=== PATIENT | female | born 1980 | race Caucasian/White ===

== ENCOUNTER 2018-03-21 21:50 | Emergency (ER) | payer OTHER, SELFPAY ==
[2018-03-21 21:51] VITALS: BP 149/99; PULSE 85; RESP 18; TEMP 36.5; O2SAT 100; BMI 20.5
--- NOTE | 2018-03-21 23:02 | ED.DCSUM_ITS ---
- ER Visit Summary Date of Service: 03/21/18 Chief Complaint: [] Abdominal pain History of Present Illness: The patient is a 37 F planing of abdominal pain since today at 1 AM. She woke up with pain in her epigastric region. It feels like contraction type discomfort. It hurts to touch. Foods make it worse. She was seen in [place] as they have a vacation home there at a.m. today. She had lab work and ultrasound and told they were normal. Given a prescription for Nexium. They did give her pain medicines which helped her sleep for couple hours and then her pain came back. It comes in waves. No nausea or vomiting. She had one loose bowel movement this afternoon. Once she has had this 1 time 8 years ago and it resolved on its own Physical Examination: [] Vital signs reviewed General: Well-nourished well-developed Head: Normocephalic atraumatic Eyes: Pupils equal round and reactive to light extraocular movements intact ENT: TMs clear no hemotympanum no trauma Neck: Nontender full range of motion Cardiovascular: Regular rate rhythm no murmurs normal S1-S2 Respiratory: No distress clear to auscultation bilaterally chest nontender Abdomen: Soft tender epigastric. Nondistended normal bowel sounds no masses Back: Nontender no CVA tenderness Extremities: Nontender active range of motion ?4 extremities no trauma Skin: Normal color no trauma Neuro alert oriented cranial nerves II through XII intact normal strength sensation reflexes Test Results: [] Emergency Department Course and Treatment: [] Patient given IV fluids, Zofran, morphine. The second dose of morphine her symptoms have resolved. Lab work shows her CBC is normal. Chemistries normal except chloride 110 calcium 8.1. Liver function tests normal except alk phos 159, ALT 138, AST 334. Bilirubin normal. Lipase 128 normal. T[address] negative. negative. CT abdomen pelvis negative. At this time I discussed the patient her drinking habits. She does say she is a binge drinker. She has been drinking daily for the last few days. She drinks shots. I think she has alcohol induced hepatitis. She will follow-up with GI as well as her family doctor retained from alcohol. She will be given oxycodone and Zofran for home to help her through this. Should resolve with refraining from alcohol. She will return if it worsens despite treatment. She had a negative ultrasound this morning of her gallbladder. Treatment Plan: [] Disposition: [] Impression: [] Acute hepatitis, suspected alcohol induced This note was generated with [employer] dictation software. It may contain incorrect words, spelling, and punctuation that were not noted in review of the chart prior to signing ED Disposition - Plan for ED Patient: Chief Complaint: Abd Pain Referrals: Westley Damian DO [Primary Care Provider] -
[2018-03-21] MEDS: 0.9% Normal Saline 1,000 ML 125 ML IV (23:21)
[2018-03-21] MEDS: Ondansetron 4 MG/2 ML Vial IV (23:26)
[2018-03-21] MEDS: Morphine 4 MG/ML Syringe IV (23:27)
[2018-03-21 23:35] LABS: Absolute Lymphocyte Count 1.62 X10^3/ul (0.83-4.51); Absolute Neutrophil Count 5.7 X10^3/uL (2.0-7.7); Basophil# 0.03 X10^3/uL; Basophil% 0.3 % (0-1); Hematocrit 40.2 % (37-47); Hemoglobin 13.6 g/dl (12.0-15.0); Lymphocyte # 1.62 X10^3/ul (4.0); Lymphocyte % 18.5 % (19-41); Mean Corp Hgb Conc 33.8 g/gl (32-36); Mean Corpuscular Hgb 30.7 pg (27.0-32.0); Mean Corpuscular Volume 90.7 fL (81-99); Mean Platelet Vol. 10.7 fl (6.2-12.0); Monocyte# 0.71 X10^3/uL; Monocyte% 8.1 % (0-10); Neutrophil # 5.69 X10^3/uL (2.7-7.7); Platelet Count 219 K/mm3 (150-450); RBC Distribution Width CV 12.2 % (11.6-14.6); RBC Distribution Width SD 40.4 fl (35.1-43.9); Red Blood Count 4.43 M/mm3 (4.2-5.4); White Blood Count 8.8 K/mm3 (4.4-11.0)
[2018-03-21 23:38] LABS: POSITIVE COUNT NO; POSITIVE DIFFERENTIAL NO; POSITIVE MORPHOLOGY NO
[2018-03-22 00:02] LABS: ALB/GLOB Ratio 0.9 RATIO (0.9-2.4); AST(SGOT) 334 U/L (15-37); Alanine Aminotransfer ALT/SGPT 138 U/L (13-56); Albumin, Serum 3.1 g/dL (3.2-5.0); Alkaline Phosphatase 159 U/L (45-117); Anion Gap 5 (5-15); BUN 7 mg/dL (7-18); BUN/Creat Ratio 10.8 RATIO (10-20); Calcium,Total 8.1 mg/dL (8.5-10.1); Chloride 110 mmol/L (98-107); Creatinine, Serum 0.65 mg/dL (0.55-1.02); EST Glomerular Filtration Rate 108 mL/min (>60); Est Glom Filt Rate - Afr Amer 131 mL/min (>60); Estimated Creatinine Clearance 100.84 ml/min; Globulin 3.6 g/dL (2.2-4.2); Glucose 109 mg/dL (74-106); Lipase 128 U/L (73-393); Potassium 3.6 mmol/L (3.5-5.1); Protein, Total 6.7 g/dL (6.4-8.2); Sodium Level 140 mmol/L (136-145)
[2018-03-22 00:20] LABS: Pregnancy, Serum, hCG Quali. NEGATIVE Negative (0-9 Nonpreg)
--- NOTE | 2018-03-22 00:21 | CT_ITS ---
STUDY: CT ABDOMEN AND PELVIS WITHOUT CONTRAST REASON FOR EXAM: Female, 37 years old. Right upper quadrant abdominal pain. Patient has history of hepatitis. RADIATION DOSAGE (If Supplied By Facility): CTDIvol = ( 6.06 ) mGy, DLP = ( 283.13 ) mGycm TECHNIQUE: Transaxial images were obtained from the dome of the diaphragm to the symphysis pubis without oral contrast, and without intravenous contrast. Sagittal and coronal images were reconstructed. Individualized dose optimization techniques were used for this CT. COMPARISON: Prior comparison studies are not available for review at this time. FINDINGS: The visualized lung bases are unremarkable. The visualized portions of the heart are within normal limits. Normal liver. Normal gallbladder and extrahepatic biliary system. Normal spleen. Normal pancreas. Normal bilateral adrenal glands. Normal right kidney. Normal left kidney. Normal visualized stomach. There is no evidence for dilated bowel, ascites or pneumoperitoneum. The small bowel has a grossly normal unenhanced appearance. Normal colon. The appendix is visualized and appears normal. Normal abdominal aorta. Normal inferior vena cava. There is borderline retroperitoneal lymphadenopathy with enlarged nodes no greater than 10mm in the short axis diameter. Normal urinary bladder. Normal visualized uterus. Normal abdominal wall. There appears to be an umbilical piercing which obscures some anatomy secondary to beam hardening and streak artifact. Normal osseous structures. CT/Abdomen/Pelvis without Cont IMPRESSION: No CT evidence of acute intra-abdominal disease. Electronically Signed: Leatha Castro MD at 1:03 EDT , Service support ,
[2018-03-22 00:53] VITALS: BP 130/82; PULSE 106; RESP 16; O2SAT 100
[2018-03-22] MEDS: Morphine 4 MG/ML Syringe IV (01:05)
--- NOTE | 2018-03-22 01:38 | ED.DEP ---
ED Disposition - Plan for ED Patient: Disposition: Home or Assisted Living Chief Complaint: Abd Pain Instructions: How the Liver Works, Common Tests for Liver Disease Prescriptions: Ondansetron [Zofran Odt] 4 mg PO Q8H PRN PRN #10 tab PRN Reason: Nausea Oxycodone [Oxyfast] 5 - 10 mg PO TID PRN 3 Days #15 ml PRN Reason: Pain Referrals: Westley Damian DO [Primary Care Provider] - Unruly Ford MD [STAFF PHYSICIAN] -
[2018-03-22 01:52] VITALS: BP 118/71; PULSE 84; RESP 16; O2SAT 98
== END 2018-03-22 02:16 | disposition home or self-care (01) ==
PROVIDERS: Emergency Provider Emergency Medicine; Family Provider Student in an Organized Health Care Education/Training Program; PCP Student in an Organized Health Care Education/Training Program
DX: B17.9 Acute viral hepatitis, unspecified (principal); Z72.89 Other problems related to lifestyle
CPT/HCPCS: 74176; 80053; 83690; 84484; 84703; 85025; 96361; 96374; 96375; 96376; 99283; A4216; J2405

== ENCOUNTER 2019-10-17 16:00 | Emergency (ER) | payer OTHER, SELFPAY ==
[2019-10-17 16:02] VITALS: BP 103/61; PULSE 75; RESP 16; TEMP 36.6; O2SAT 100; BMI 21.7
--- NOTE | 2019-10-17 16:22 | CT_ITS ---
STUDY: CT BRAIN WITHOUT CONTRAST REASON FOR EXAM: Female, 39 years old. Right-sided head injury RADIATION DOSAGE (If Supplied By Facility): CTDIvol = ( 44.99 ) mGy, DLP = ( 779.24 ) mGycm TECHNIQUE: Transaxial CT imaging of the brain was performed without administration of intravenous contrast material. Individualized dose optimization techniques were used for this CT. COMPARISON: No relevant priors. FINDINGS: Normal soft tissue structures. Normal calvarium. Normal size ventricles and extra-axial spaces for the patient''s age. Normal white matter tracts of the cerebral hemispheres. Normal basal ganglia and thalami. Normal brainstem. Normal cerebellum. There is no intracranial hemorrhage. There are no findings of an acute ischemic infarction. Normal visualized paranasal sinuses. CT/Brain/Head without Contrast IMPRESSION: Normal unenhanced CT scan of the brain. Electronically Signed: Venkat Baez DO at 17:09 EST Tel , Service support ,
--- NOTE | 2019-10-17 17:22 | ED.DCSUM_ITS ---
- ER Visit Summary Date of Service: 10/17/19 Chief Complaint: Fall History of Present Illness: The patient is a [address] Damian. She reports that 10 days ago she fell when going down the steps. She hit her head and had a loss of consciousness. She reports that she continues to have a headache a 7 on 10 in severity. She reports she has neck pain is 5-10 in severity, but this is improving. She reports that she had right-sided chest pain since that time. She states that that is 4 out of 10 in severity. She did not seek medical treatment at the time of the fall. Patient reports that since that time she had problems with her memory, she is confused, has loss of words and blurred vision. Physical Examination: Vitals: Stable. Afebrile. Neck: No vertebral tenderness. Full ROM without difficulty. Cleared by NEXUS criteria. Back: No vertebral tenderness. General: A&O x 3. NAD. Cardiovascular exam: Regular rate and rhythm, no murmur, rub or gallop. Respiratory exam: Moderate tenderness palpation of costochondral margin on the upper right. No pain with lateral compression of her chest. No crepitus. Clear to auscultation bilaterally. No wheezes or stridor. Abdominal exam: Soft, nontender, nondistended, normal bowel sounds. No pain in RUQ or LUQ specifically. No peritoneal signs. Extremity: Atraumatic. No pain with range of motion. Test Results: CT brain shows no acute disease. Patient reports that she had a chest x-ray despite coming emerge department that was negative. She did not want this repeated. Emergency Department Course and Treatment: Patient is taken Tylenol and ibupro fen prior to coming in. I did discuss with her the fact that her symptoms from her concussion will be exacerbated by using opiate-based medications and I do think this is in her best interest. Treatment Plan: Patient be discharged with symptomatic care. Push fluids. Use Tylenol and ibuprofen. I did discuss concussion restrictions with her. Follow- up Dr. Damian in 1 week for another exam. Return to the emergency department for any worsening symptoms. Disposition: To home in improved and stable condition. Impression: 1. Concussion. This note was generated with [employer] dictation software. It may contain incorrect words, spelling, and punctuation that were not noted in review of the chart prior to signing ED Disposition - Plan for ED Patient: Instructions: CONCUSSION, No Wake Up Referrals: Westley Damian DO [Primary Care Provider] - 1 Week
== END 2019-10-17 17:46 | disposition home or self-care (01) ==
LOC: ED 17:15
PROVIDERS: Emergency Provider Emergency Medicine; Family Provider Student in an Organized Health Care Education/Training Program; PCP Student in an Organized Health Care Education/Training Program
DX: S06.0X9A Concussion with loss of consciousness of unspecified duration, initial encounter (principal); W10.9XXA Fall (on) (from) unspecified stairs and steps, initial encounter; Y93.89 Activity, other specified
CPT/HCPCS: 70450; 99282

== ENCOUNTER → 2020-08-21 17:21 | Outpatient (CLI) | payer OTHER, SELFPAY | PROVIDERS: PCP Student in an Organized Health Care Education/Training Program; Referring Provider Nurse Practitioner Family; Visit Provider Nurse Practitioner Family | DX: Z20.828 Contact with and (suspected) exposure to other viral communicable diseases (principal) | CPT/HCPCS: 87635; C9803; U0003 ==

== ENCOUNTER 2021-07-07 14:41 | Emergency (ER) | payer BC, SELFPAY ==
[2021-07-07 14:42] VITALS: BP 143/96; PULSE 94; RESP 18; TEMP 36.6; O2SAT 100; BMI 19.5
--- NOTE | 2021-07-07 15:22 | EDS_ITS ---
HPI History of Present Illness Chief Complaint: Laceration Informant: patient Narrative Narrative: Patient is a 40-year-old female with no significant past medical history present with laceration to her right hand. She states she was grabbing her ceramic casserole dish as she did not realize it was broken and then cut her hand. She is right-hand dominant. She does not have significant pain. Her was concerned she needs stitches so she came to emergency room for further evaluation. Injury was a couple hours prior to arrival. Last tetanus shot she believes was in 2013. She denies any associated numbness or tingling. Tetanus Immunization: 5-10 years [facility] Medical History (Updated 07/07/21 @ 15:39 by Jackelin Hester RN) PMDD (premenstrual dysphoric disorder) Home Medications NK 10/17/19 [History Last Taken Unknown] Allergy/AdvReac Type Severity Reaction Status Date / Time pseudoephedrine HCl Allergy Unknown Verified 07/07/21 14:44 [From Actifed] triprolidine HCl Allergy Unknown Verified 10/17/19 16:02 [From Actifed] Social History Smoking Status: Never smoker ROS ROS ED Constitutional Constitutional ED: Denies chills ENT ENT ED: Denies rhinorrhea or sore throat Cardiovascular Cardiovascular: Denies chest pain Respiratory/Chest Respiratory/Chest: Denies cough or dyspnea Gastrointestinal Gastrointestinal: Denies vomiting Musculoskeletal Musculoskeletal: Denies myalgias Integumentary Reports other Details: Laceration to right hand Neurologic Neurologic: Denies headache(s), paresthesias or weakness EXAM Physical Exam Const Vital Signs: 07/07/21 14:42 Temperature 97.9 F Temperature Source Temporal Pulse Rate 94 Respiratory Rate 18 Blood Pressure 143/96 H Blood Pressure Mean 111 Pulse Ox 100 Oxygen Delivery Method Room Air Positive well nourished and well developed General Appearance ED: well developed HEENT normocephalic and atraumatic Eyes PERRL and EOMs intact bilaterally Neck supple Chest Wall inspection of chest normal Resp normal respiratory effort Cardio regular rate and regular rhythm Cardio Narrative: 2+ bilateral radial pulses, brisk capillary refill Extremity Extremity Narrative: Normal range of motion. No bony deformity. Neuro oriented x3, no focal motor deficits and no sensory deficits noted Sensorium / Orientation: alert Psych mental status grossly normal Skin Skin Narrative: 3 cm full-thickness linear laceration over the lateral aspect of the second MCP on the right hand. MDM MDM MDM Narrative Medical decision making narrative: Patient evaluated for finger laceration. She appears nontoxic in no acute distress. Tetanus is updated. Laceration repair performed. Patient tolerated procedure well with no immediate complications. Discharged home with wound care instructions. Will have PCP remove stitches in 10 days. Procedures Lacerations right hand : Length: 1.18 in Depth: Skin Shape: Linear Prep: Sterile Conditions and Chlorhexadine Laceration repair: Lidocaine with epi and Local Irrigated (ml): 500 Number of Sutures/Repton: 3 Suture Information: Vicryl, Simple and 4-0 Discharge Plan Triage Chief Complaint: Laceration ED Provider: Disha Schuler Dx/Rx/DC Orders Clinical Impression: Hand laceration Instructions: ED Laceration, Hand: All Closures Prescriptions: No Action NK RF: 0 Primary Care Provider: Westley Damian Referrals: Westley Damian DO [Primary Care Provider] - Activity Restrictions/Additional Instructions: Sutures should be reevaluated and removed in 10 days. Disposition Disposition: Home, Self Care Discharge Date/Time: 07/07/21 16:06
[2021-07-07] MEDS: Diphth,Pertuss(Acell),Tet Vac 0.5 ML Vial IM (15:32)
[2021-07-07] MEDS: Lidocaine 1% /Epi 1:100 (20ml) 20 ML Vial INFILT (15:32)
== END 2021-07-07 16:06 | disposition home or self-care (01) ==
PROVIDERS: Emergency Provider Emergency Medicine; PCP Student in an Organized Health Care Education/Training Program
DX: S61.411A Laceration without foreign body of right hand, initial encounter (principal); W26.9XXA Contact with unspecified sharp object(s), initial encounter
CPT/HCPCS: 12001; 90715; 96372; 99282